=== PATIENT | male | born 1950 | race Caucasian/White ===

== ENCOUNTER 2020-06-14 10:11 | Outpatient (REF) | payer MEDICARE, SELFPAY ==
[2020-06-14 14:24] LABS: Cholesterol 213 mg/dL; HDL Cholesterol 54 mg/dL; LDL Cholesterol Calculated 136 mg/dl; Triglycerides 116 mg/dL
== END 2020-06-14 10:12 | disposition home or self-care (01) ==
LOC: HO.10HDL 10:11
PROVIDERS: PCP Internal Medicine; Visit Provider Internal Medicine
DX: E78.00 Pure hypercholesterolemia, unspecified (principal)
CPT/HCPCS: 80061

== ENCOUNTER 2020-11-04 11:22 | Outpatient (REF) | payer MEDICARE, SELFPAY ==
--- NOTE | ~2020-11-04 | CT_ITS ---
EXAMINATION: CT MAXILLOFACIAL WITHOUT CONTRAST CLINICAL INFORMATION: Other specified disorder of nose and sinuses. COMPARISON: None. TECHNIQUE: Multidetector helical imaging was performed in the axial plane with generation of coronal and sagittal reformatted images. This CT examination was performed using dose optimization techniques as appropriate, variously including the following: *Automated exposure control *Adjustment of mA and/or kV according to patient size (this includes techniques or standardized protocols for targeted exams where dose is matched to indication/reason for exam; i.e. extremities or head) *Use of iterative reconstruction technique DLP: 94 mGy-cm. FINDINGS: There is mild mucosal thickening dependently in the left frontal sinus and in the left anterior ethmoid air cells. Small retention cyst in the left sphenoid sinus. There is a moderate rightward deviation of the nasal septum with nasal septal spurring distorting the right inferior turbinate. The ostiomeatal complexes are clear. The lamina papyracea are intact. The ethmoid roofs are symmetric. The carotid canals are normally covered by bone. There is periodontal disease associated with the first right maxillary molar. The mastoid air cells and visualized middle ear cavities are well aerated. The orbits are normal. The TMJs are unremarkable. The imaged portions of the brain demonstrate no acute abnormality. CT/CT sinus wo con IMPRESSION: Mild left frontal ethmoid sinus mucosal thickening. Moderate rightward nasal septal deviation with nasal septal spurring distorting the right inferior turbinate.
== END 2020-11-04 11:23 | disposition home or self-care (01) ==
LOC: HO.CT 11:22
PROVIDERS: PCP Internal Medicine; Visit Provider Internal Medicine
DX: H93.11 Tinnitus, right ear (principal); J34.89 Other specified disorders of nose and nasal sinuses
CPT/HCPCS: 70486

== ENCOUNTER 2021-01-30 16:08 | Outpatient (REF) | payer MEDICARE, SELFPAY ==
[2021-01-30 17:19] LABS: MANUAL DIFF FLAG NO
[2021-01-30 17:22] LABS: Basophils Percent Auto 0.6 % (0-2); Eosinophils Absolute Auto 0.2 X10*3/uL (0.0-0.4); Eosinophils Percent Auto 2.8 % (0-4); Imm Gran Abs Auto 0.03 X10*3/uL (0.00-0.03); Imm Gran Pct Auto 0.4 % (0.0-0.4); Lymphocytes Absolute Auto 1.4 X10*3/uL (1.2-4.9); Lymphocytes Percent Auto 19.9 % (20-40); Mean Corpuscular HGB Conc 34.1 g/dl (31.0-36.0); Mean Corpuscular Hemoglobin 31.1 pg (27.0-33.0); Mean Corpuscular Volume 91.3 fL (80-98); Monocytes Absolute Auto 0.5 X10*3/uL (0.1-1.2); Monocytes Percent Auto 7.5 % (2-11); Neutrophils Absolute Auto 4.7 X10*3/uL (2.0-8.3); Neutrophils Percent Auto 68.8 % (45-73); Platelet Count 207 X10*3/uL (160-400); Red Blood Count 4.82 X10*6/uL (4.60-5.80); Red Cell Distribution Width 13.5 % (11.0-16.0); White Blood Count 6.9 X10*3/uL (4.8-10.8)
[2021-01-30 17:52] LABS: Anion Gap 11 (12-20); Blood Urea Nitrogen 18 mg/dL (9-16); Calcium 9.4 mg/dL (8.4-10.2); Carbon Dioxide 29 mmol/L (22-29); Chloride 104 mmol/L (96-108); Estimated Glomerular Filt Rate > 60; Glucose Random 98 mg/dL (60-115); Potassium 4.1 mmol/L (3.3-5.1); Sodium 140 mmol/L (135-145)
[2021-02-01 17:41] LABS: Lyme Abs Screen <0.90 index
== END 2021-01-30 16:09 | disposition home or self-care (01) ==
LOC: HO.LAB 16:08
PROVIDERS: PCP Internal Medicine; Visit Provider Internal Medicine
DX: T14.8XXA Other injury of unspecified body region, initial encounter (principal); W57.XXXA Bitten or stung by nonvenomous insect and other nonvenomous arthropods, initial encounter; R20.0 Anesthesia of skin
CPT/HCPCS: 36415; 80048; 82550; 85025; 86140; 86617; 86618

== ENCOUNTER 2021-02-15 09:18 | Outpatient (REF) | payer MEDICARE, SELFPAY ==
--- NOTE | ~2021-02-15 | CT_ITS ---
EXAMINATION: CT HEAD WITH/WITHOUT CONTRAST CLINICAL INFORMATION: Numbness left face. Rule out lesion. COMPARISON: None TECHNIQUE: Contiguous axial imaging was performed from the skull base to vertex before and after the administration of 85 mL of Omnipaque [address] examination was performed using dose optimization techniques as appropriate, variously including the following: *Automated exposure control *Adjustment of mA and/or kV according to patient size (this includes techniques or standardized protocols for targeted exams where dose is matched to indication/reason for exam; i.e. extremities or head) *Use of iterative reconstruction technique DLP: 1472 mGy-cm FINDINGS: There is no evidence of acute intracranial hemorrhage or territorial infarction. No abnormal mass effect or midline shift is seen. Payan to white matter differentiation is well preserved. No extra-axial fluid collections are identified. There is no abnormal enhancement. The lateral ventricles is symmetrical in size but enlarged. There is mild perirectal hypodensity without mass effect. The osseous structures and soft tissues are normal. There is mild mucoperiosteal thickening left anterior and middle ethmoid sinuses. Rest the paranasal sinuses and mastoid air cells are well-aerated . CT/CT head/brain wo/w con IMPRESSION: No acute intracranial process seen. Chronic left anterior and middle ethmoid sinus inflammatory changes.
[2021-02-15] MEDS: iohexoL 350 MG/ML 100 ML INFUS..BTL IV (09:57)
== END 2021-02-15 09:19 | disposition home or self-care (01) ==
LOC: HO.CT 09:18
PROVIDERS: PCP Internal Medicine; Visit Provider Internal Medicine
DX: R20.2 Paresthesia of skin (principal)
CPT/HCPCS: 70470; Q9967

== ENCOUNTER 2021-04-18 10:31 | Outpatient (REF) | payer MEDICARE, SELFPAY ==
[2021-04-18 13:44] LABS: MANUAL DIFF FLAG NO
[2021-04-18 13:55] LABS: Basophils Percent Auto 0.6 % (0-2); Eosinophils Absolute Auto 0.1 X10*3/uL (0.0-0.4); Eosinophils Percent Auto 2.8 % (0-4); Hematocrit 45.9 % (42-52); Hemoglobin 15.3 g/dl (14.0-18.0); Imm Gran Abs Auto 0.02 X10*3/uL (0.00-0.03); Imm Gran Pct Auto 0.4 % (0.0-0.4); Lymphocytes Absolute Auto 1.2 X10*3/uL (1.2-4.9); Lymphocytes Percent Auto 26.6 % (20-40); Mean Corpuscular HGB Conc 33.3 g/dl (31.0-36.0); Mean Corpuscular Hemoglobin 30.4 pg (27.0-33.0); Mean Corpuscular Volume 91.1 fL (80-98); Mean Platelet Volume 10.3 fL (9.4-12.4); Monocytes Absolute Auto 0.4 X10*3/uL (0.1-1.2); Monocytes Percent Auto 8.4 % (2-11); Neutrophils Absolute Auto 2.9 X10*3/uL (2.0-8.3); Neutrophils Percent Auto 61.2 % (45-73); Platelet Count 203 X10*3/uL (160-400); Red Blood Count 5.04 X10*6/uL (4.60-5.80); White Blood Count 4.7 X10*3/uL (4.8-10.8)
[2021-04-18 14:07] LABS: Alanine Aminotransferase 18 U/L (0-40); Albumin Level 4.2 g/dL (3.5-5.0); Alkaline Phosphatase 42 U/L (39-117); Anion Gap 12 (12-20); Aspartate Amino Transferase 19 U/L (5-37); Bilirubin Total 1.4 mg/dL (0.0-1.0); Blood Urea Nitrogen 15 mg/dL (9-16); Calcium 9.1 mg/dL (8.4-10.2); Carbon Dioxide 27 mmol/L (22-29); Chloride 100 mmol/L (96-108); Cholesterol 207 mg/dL; Estimated Glomerular Filt Rate > 60; Glucose Fasting 100 mg/dL (60-99); HDL Cholesterol 55 mg/dL; LDL Cholesterol Calculated 126 mg/dl; Potassium 4.4 mmol/L (3.3-5.1); Sodium 135 mmol/L (135-145); Total Protein 6.8 g/dL (6.5-8.0); Triglycerides 130 mg/dL
[2021-04-18 14:28] LABS: Prostate Specific Antigen Scr 1.71 ng/mL (<0.05-4.0)
[2021-04-20 16:11] LABS: Transglutaminase Ab IgG <1.0 U/mL; Transglutaminase IgA <1.0 U/mL
[2021-04-20 16:15] LABS: Gliadin Deamidated IgA Ab 1.6 U/mL; Gliadin Deamidated IgG Ab <1.0 U/mL
== END 2021-04-18 10:32 | disposition home or self-care (01) ==
LOC: HO.10HDL 10:31
PROVIDERS: Visit Provider Internal Medicine
DX: Z12.5 Encounter for screening for malignant neoplasm of prostate (principal); I10 Essential (primary) hypertension; E78.00 Pure hypercholesterolemia, unspecified; R19.7 Diarrhea, unspecified; Z86.010 Personal history of colon polyps
CPT/HCPCS: 36415; 80053; 80061; 83516; 84153; 85025

== ENCOUNTER 2021-04-25 13:47 | Outpatient (REF) | payer MEDICARE, SELFPAY ==
[2021-04-27 13:07] LABS: Transglutaminase Ab IgG <1.0 U/mL
[2021-04-27 13:11] LABS: Gliadin Deamidated IgA Ab 1.5 U/mL; Gliadin Deamidated IgG Ab <1.0 U/mL
== END 2021-04-25 13:48 | disposition home or self-care (01) ==
LOC: HO.LAB 13:47
PROVIDERS: PCP Internal Medicine; Visit Provider Internal Medicine
DX: R19.7 Diarrhea, unspecified (principal)
CPT/HCPCS: 36415; 83516

== ENCOUNTER → 2022-02-22 07:46 | Outpatient (BNVA) | payer MEDICARE, SELFPAY | PROVIDERS: PCP Internal Medicine; Referring Provider Internal Medicine; Visit Provider Nurse Practitioner Family | DX: Z01.818 Encounter for other preprocedural examination (principal); D36.9 Benign neoplasm, unspecified site | CPT/HCPCS: 99202 ==

== ENCOUNTER 2022-04-09 10:16 | Outpatient (REF) | payer MEDICARE, SELFPAY ==
[2022-04-09 13:46] LABS: MANUAL DIFF FLAG NO
[2022-04-09 13:51] LABS: Basophils Percent Auto 0.6 % (0-2); Eosinophils Absolute Auto 0.2 X10*3/uL (0.0-0.4); Eosinophils Percent Auto 3.5 % (0-4); Hemoglobin 15.6 g/dl (14.0-18.0); Imm Gran Abs Auto 0.03 X10*3/uL (0.00-0.03); Imm Gran Pct Auto 0.6 % (0.0-0.4); Lymphocytes Absolute Auto 1.4 X10*3/uL (1.2-4.9); Lymphocytes Percent Auto 28.7 % (20-40); Mean Corpuscular HGB Conc 33.9 g/dl (31.0-36.0); Mean Corpuscular Volume 91.5 fL (80.0-98.0); Mean Platelet Volume 10.2 fL (9.4-12.4); Monocytes Absolute Auto 0.5 X10*3/uL (0.1-1.2); Monocytes Percent Auto 9.7 % (2-11); Neutrophils Absolute Auto 2.8 x10*3/uL (2.0-8.3); Neutrophils Percent Auto 56.9 % (45-73); Platelet Count 187 X10*3/uL (160-400); Red Blood Count 5.03 X10*6/uL (4.60-5.80); Red Cell Distribution Width 13.1 % (11.0-16.0); White Blood Count 4.9 X10*3/uL (4.8-10.8)
[2022-04-09 14:06] LABS: Alanine Aminotransferase 17 U/L (0-40); Albumin Level 4.3 g/dL (3.5-5.0); Alkaline Phosphatase 42 U/L (39-117); Anion Gap 17 (12-20); Aspartate Amino Transferase 20 U/L (5-37); Bilirubin Total 1.1 mg/dL (0.0-1.0); Blood Urea Nitrogen 15 mg/dL (9-16); Calcium 9.2 mg/dL (8.4-10.2); Carbon Dioxide 27 mmol/L (22-29); Chloride 100 mmol/L (96-108); Cholesterol 222 mg/dL; Estimated Glomerular Filt Rate > 60; Glucose Fasting 101 mg/dL (60-99); HDL Cholesterol 57 mg/dL; LDL Cholesterol Calculated 144 mg/dl; Potassium 4.8 mmol/L (3.3-5.1); Sodium 139 mmol/L (135-145); Total Protein 6.9 g/dL (6.5-8.0); Triglycerides 106 mg/dL
[2022-04-09 14:29] LABS: Prostate Specific Antigen Scr 1.62 ng/mL (<0.05-4.0)
== END 2022-04-09 10:17 | disposition home or self-care (01) ==
LOC: HO.10HDL 10:16
PROVIDERS: Visit Provider Internal Medicine
DX: Z12.5 Encounter for screening for malignant neoplasm of prostate (principal); I10 Essential (primary) hypertension; E78.00 Pure hypercholesterolemia, unspecified; R35.1 Nocturia
CPT/HCPCS: 36415; 80053; 80061; 84153; 85025

== ENCOUNTER → 2022-04-18 13:51 | Outpatient (REF) | payer MEDICARE, SELFPAY ==
--- NOTE | 2022-04-18 13:54 | CA_ITS ---
Transthoracic Echocardiogram Patient (Last, First, Middle): Bobby Mccartney, Gender: Male Date of : 1950 Age: 71 Procedure Date: 04/18/2022 Procedure Type: Transthoracic Echocardiogram Location: OP Height: 172.72 cm Weight: 68.04 kg BSA: 1.81 m2 Heart Rate: 62 bpm BP: 150 / 85 mmHg Adult Caregiver: KUNAL Referring MD: Alejo Petersen MD Restrooms Or Lounges Maid: Obed Carmen MD Symptoms: HEART MURMUR Study Quality: Adequate ECG Rhythm: Sinus Conclusions: - 1. Normal LV systolic function with LVEF of 60 65% 2. Mild fibrocalcific aortic valve changes noted with normal cardiac valvular Doppler 3. Normal RV systolic pressure 4. No gross pericardial effusion Findings Left Ventricle Normal left ventricular size, thickness, and systolic function. The visually estimated ejection fraction is between 60-65%. Spectral Doppler is indicative of a normal filling pattern. Right Ventricle Normal right ventricular cavity size and systolic function. Atria The left atrium is normal in size. Interatrial shunt cannot be excluded. The right atrium is normal in size. Aortic Valve The aortic valve was not well visualized. There is mild calcification of the aortic valve. There is no aortic valve stenosis. There is no aortic valve regurgitation. Mitral Valve Normal mitral valve structure and function. There is trace mitral valve regurgitation. There is no mitral valve stenosis. Pulmonic Valve The pulmonic valve was not well visualized. Tricuspid Valve Likely normal tricuspid valve structure and function. There is trace tricuspid valve regurgitation. The right ventricular systolic pressure is normal. The right ventricular systolic pressure is 11 mmHg. Normal right atrial pressure. Great Vessels All visible segments of the aorta are normal in size. The pulmonary artery was not well visualized. Venous The inferior vena cava is normal in size and collapses greater than 50% with inspiration. Pericardium/Pleural There is no evidence of pericardial effusion. Prior Study Comparison No prior study available for comparison. Measurements 2D Linear Measurements IVSd: 0.96 0.6-0.9/0.6-1.0 cm LVIDd: 4.65 3.9-5.3/4.2-5.9 cm LVIDd Index: 2.57 2.4-3.2/2.2-3.1 cm/m2 LVIDs: 2.27 2.0-3.6 cm LVPWd: 0.81 0.7-1.1 cm LA Diam: 3.10 2.7-3.8/3.0-4.0 cm LAIDs Index: 1.71 1.5-2.3 cm/m2 LV Mass: 170.88 67-162/88-224 g LV Mass Index: 94.41 43-95/49-115 g/m2 LVOT Diam: 2.00 3.0+(-)1.3 cm 2D Systolic Function EF 4C: 60.80 >55% EF 2C: 67.00 >55% EF BiP: 61.70 >55% Mitral Valve MV Pk E: 0.85 MV PK A: 0.62 MV Decel Time: 173.00 E/A: 1.40 E'Lateral: 11.30 E'Medial: 8.05 E/E' Med: 10.50 E/E' Lat: 7.50 PHT: 51.00 MVA PHT: 4.31 Decel [place]: 4.92 Aortic Valve AoV Pk Ilya: 1.29 AoV Mn Ilya: 0.95 AoV VTI: 0.30 AoV Pk Grad: 7.00 Aov Mn Grad: 4.00 REYNALDO Cont.VTI: 2.41 LVOT LVOT Pk Ilya: 1.11 LVOT Mn Ilya: 0.72 LVOT VTI: 0.23 LVOT Pk Grad: 5.00 LVOT Mn Grad: 2.00 LVOT Diam: 2.00 LVOT Area: 3.14 Diastolic Function MV Pk E: 0.85 MV Pk A: 0.62 E/A: 1.40 E'Medial: 8.05 E/E' Med: 10.50 E' Laterial: 11.30 E/E' Lat: 7.50 Right Ventricle TAPSE (mm): 28.70 TVS' Ilya: 15.20 Tricuspid Valve TR Pk Ilya: 1.37 TR Pk Grad: 8.00 RA Press: 3.00 RVSP: 11.00 Great Vessels Aorta Sinus of Valsalva: 3.40 2.0-3.5 cm Ao Asc: 3.10 2.1-3.4 cm Pulmonary Valve PV Pk Ilya: 1.11 Peak PV Grad: 5.00 Updated in Other Vendor System with Status of Final Obed Carmen MD electronically signed on 04/19/2022 11:26:01 AM with status of Final
== END ==
LOC: HO.CARD 13:51
PROVIDERS: PCP Internal Medicine; Visit Provider Internal Medicine
DX: R01.1 Cardiac murmur, unspecified (principal)
CPT/HCPCS: 93306

== ENCOUNTER 2022-07-04 07:21 | Day surgery (SDC) | payer MEDICARE, SELFPAY ==
[2022-07-02 09:10] VITALS: BMI 22.8
--- NOTE | 2022-07-03 08:59 | HO.ANESPROP2 ---
HPI - Anesthesia Eval Consult details Narrative: 71yo M for Colonoscopy PMFSH Active Problems Active Problems: All Active Problems (Updated 02/22/22 @ 08:28 by NIKKI Ledesma) Tubular adenoma (Acute) Past Medical History Medical History (Updated 02/22/22 @ 08:28 by NIKKI Ledesma) HTN (hypertension) Tubular adenoma Family History Family History Mother Lung cancer Colon cancer Father Heart attack Surgical History Surgical History (Updated 07/02/22 @ 09:09 by Doreen Self RN) H/O colonoscopy Hx of left inguinal hernia repair Social History Social History (Updated 02/22/22 @ 08:12 by Jovani Garland) Household Members: Significant Other Alcohol intake: current Patient Tobacco Use Status: Never used Tobacco Meds Allergies Allergy/AdvReac Type Severity Reaction Status Date / Time No Known Allergies Allergy Verified 02/22/22 08:10 [No Known Allergies*] Home Medications Medication Instructions Recorded Confirmed Last Taken Type hydrochlorothiazide 25 mg tablet 12.5 mg PO QAM 02/22/22 Unknown History lisinopril 10 mg tablet 10 mg PO DAILY 02/22/22 Unknown History Exam Exam Date and Time: July 03, 2022 0859 Height,Weight and Vital Signs: Height 5 ft 8 in Weight 68.039 kg Pertinent Lab Results Pertinent Lab Results: Laboratory Tests 04/09/22 04/09/22 10:20 10:20 WBC 4.9 Hgb 15.6 Hct 46.0 Plt Count 187 Sodium 139 Potassium 4.8 Chloride 100 Carbon Dioxide 27 BUN 15 Creatinine 0.93 Narrative Narrative: ECHO 03/2022 Conclusions: - 1. Normal LV systolic function with LVEF of 60 65% ? 2. Mild fibrocalcific aortic valve changes noted with normal ? ? cardiac valvular Doppler ? 3. Normal RV systolic pressure ? 4. No gross pericardial effusion ?? Assessment and Plan Assessment Anesthesia Assessment: Chart Reviewed
--- NOTE | 2022-07-04 06:53 | P.HPSUR_ITS ---
Pre-Procedural Eval Section A Date of Service: 07/04/22 Section B Chief Complaint: screening Relevant Family History (Specify if Yes): Yes Relevant Social History: None Present Medications: see Short Stay Collaborative assessment Medical History: Significant History ( HTN (hypertension) Tubular adenoma) History of Previous Operations: Relevant previous surgery/procedure and date(s) (inguinal hernia repair) Allergies: Allergies Allergy/AdvReac Type Severity Reaction Status Date / Time No Known Allergies Allergy Verified 02/22/22 08:10 [No Known Allergies*] Review of Systems Sugical H&P ROS: Negative: Constitution, Cardiovascular, Respiratory, Jeanmarie rological, Psychiatric, Hem-Onc, Allergic/Immunologic, Gastrointestinal, Genitourinary, Musculoskeletal, Integumentary, Endocrine and Eyes/Ears/Nose/Throat Exam Surgical H&P Exam: Normal: HEENT, Normal: Heart, Normal: Lungs, Normal: Extremities, Normal: Abdomen and Normal: Neurological and Significant Findings: Skin (roscea) Plan Diagnosis/Plan: Unchanged I have reviewed the history and physical and performed a pertinent physical examination on my patient. No changes have occurred unless specified. Time Spent With Patient Time: Total time managing care of this patient today ____ minutes.
[2022-07-04 07:32] VITALS: BMI 22.8
[2022-07-04 07:34] VITALS: BP 140/74; PULSE 80; RESP 18; TEMP 37; O2SAT 99
[2022-07-04] MEDS: Lactated Ringers 1,000 ML 100 ML IVCONT (07:52)
--- NOTE | 2022-07-04 07:57 | HO.ANESPROP2 ---
[facility] Active Problems Active Problems: All Active Problems (Updated 02/22/22 @ 08:28 by NIKKI Ledesma) Tubular adenoma (Acute) Past Medical History Medical History (Updated 02/22/22 @ 08:28 by NIKKI Ledesma) HTN (hypertension) Tubular adenoma Family History Family History Mother Lung cancer Colon cancer Father Heart attack Family history of problems with anesthesia: No Surgical History Surgical History (Updated 07/02/22 @ 09:09 by Doreen Self RN) H/O colonoscopy Hx of left inguinal hernia repair History of Problems with Anesthesia: No Social History Social History (Updated 02/22/22 @ 08:12 by Jovani Garland) Household Members: Significant Other Alcohol intake: current Patient Tobacco Use Status: Never used Tobacco Use of substances other than those prescribed or required for medical reasons: No Have you been hit, kicked, punched, or otherwise hurt by someone within the past year? If so, by whom?: No Are you DNR?: No Advance Directives: No Advance Directives Information Provided: Yes Meds Allergies Allergy/AdvReac Type Severity Reaction Status Date / Time No Known Allergies Allergy Verified 02/22/22 08:10 [No Known Allergies*] Active Medications: Current Medications Lactated Ringer's (Lr) 1,000 mls @ 100 mls/hr IVCONT .Q10H DANIELLE Last Admin: 07/04/22 07:52 Dose: 100 mls/hr Home Medications Medication Instructions Recorded Confirmed Last Taken Type hydrochlorothiazide 25 mg tablet 12.5 mg PO QAM 02/22/22 Unknown History lisinopril 10 mg tablet 10 mg PO DAILY 02/22/22 Unknown History Exam Exam Date and Time: July 04, 2022 0757 Height,Weight and Vital Signs: Height 5 ft 8 in Weight 68.039 kg Last Vital Signs Temp 98.6 F 07/04/22 07:34 Pulse 80 07/04/22 07:34 Resp 18 07/04/22 07:34 BP 140/74 H 07/04/22 07:34 Pulse Ox 99 07/04/22 07:34 O2 Del Method 07/04/22 07:34 Airway Mallampati Class: I TM Dist: >3cm Neck ROM: Full Assessment and Plan Assessment Anesthesia Assessment: Anesthesia Plan Discussed and Chart Reviewed Final Anesthetic Review Family History of Problems with Anesthesia: No History of Problems with Anesthesia: No NPO: Yes ASA Class: II Final Preanesthetic Review: No Changes in Pt Med Stat, Meds/Allgs Chart Reviewed, Consent Obtained/Reviewed and Anes Risks/Benef Reviewed Patient Risk: Low Procedure Risk: Low Anesthetic Plan Anesthetic Plan: MAC: Disposition: Standard PACU
--- NOTE | 2022-07-04 08:24 | W.PM.OPN ---
Operative Note Operative Note Date of Service: 07/04/22 Narrative: Operative Information Procedure Description: Colonoscopy Indication: screening Anesthesia: MAC COLONOSCOPY Instrument: Olympus variable stiffness pediatric scope 190L Colonoscopy Monitoring: Vital signs and clinical assessment, continuous EKG monitoring, Pulse oximetry, Carbon Dioxide monitoring and blood pressure monitoring were done throughout the procedure. Colon withdrawal time was 12 minutes. Procedure: The patient was placed in the left lateral decubitis position and pre-procedure medications were administered. After a digital rectal examination of the ano-rectum, the video colonoscope was inserted into the rectum and advanced through the colon to the cecum/TI. The colonoscope was slowly withdrawn in a retrograde panoramic fashion and the colon mucosa was carefully examined including a retroflexed view of the rectum. Findings and interventions are described below. Procedure Difficulty: easy Findings: Terminal Ileum-normal Cecum:normal Ascending Colon: x 1 sessile polyp 10 mm removed with cold snare Transverse Colon -normal Descending Colon: x 2 sessile polyps 8-10 mm removed with cold snare Sigmoid Colon: 6-8 mm sessile polyp removed with cold forceps Rectum: Retroflexion with small internal hemorrhoids, grade I Anorectum - normal Colon preparation: [place] Bowel Preparation Scale Right colon; 2 Transverse colon: 3 Left colon; 3 (0 = Unprepared colon segment with mucosa not seen due to solid stool that cannot be cleared. 1 = Portion of mucosa of the colon segment seen, but other areas of the colon segment not well seen due to staining, residual stool and/or opaque liquid. 2 = Minor amount of residual staining, small fragments of stool and/or opaque liquid, but mucosa of colon segment seen well. 3 = Entire mucosa of colon segment seen well with no residual staining, small fragments of stool or opaque liquid) Impression and Post Procedure Diagnosis: polyps internal hemorrhoids Plan: High fiber diet leaflet Avoid straining at stool, epsom salts and sitz bath, anusol supps or cream Repeat Colonoscopy in 3-4 years due to adenomatous polyps by kudo pit pattern or earlier if clinically indicated Above findings were reviewed with the patient and relevant handouts were provided if indicated.
[2022-07-04 08:46] VITALS: BP 121/62; PULSE 59; RESP 16; TEMP 36.8; O2SAT 97
[2022-07-04 09:02] VITALS: BP 111/69; PULSE 55; RESP 16; TEMP 36.9; O2SAT 98
== END 2022-07-04 09:40 | disposition home or self-care (01) ==
PROVIDERS: PCP Internal Medicine; Visit Provider Internal Medicine Gastroenterology
PROC: 0DJD8ZZ Inspection of Lower Intestinal Tract, Via Natural or Artificial Opening Endoscopic (ICD-10-PCS; CPT 45378; principal; 2022-07-04 08:30)
DX: Z12.11 Encounter for screening for malignant neoplasm of colon (principal); Z86.010 Personal history of colon polyps; D12.2 Benign neoplasm of ascending colon; D12.4 Benign neoplasm of descending colon; D12.5 Benign neoplasm of sigmoid colon; K64.0 First degree hemorrhoids; I10 Essential (primary) hypertension; Z79.899 Other long term (current) drug therapy
CPT/HCPCS: 45385; 45380; 88305

== ENCOUNTER 2023-05-28 09:06 | Outpatient (REF) | payer MEDICARE, SELFPAY ==
[2023-05-28 09:38] LABS: MANUAL DIFF FLAG NO
[2023-05-28 10:16] LABS: Basophils Percent Auto 0.8 % (0-2); Eosinophils Absolute Auto 0.2 X10*3/uL (0.0-0.4); Eosinophils Percent Auto 3.7 % (0-4); Hematocrit 48.3 % (42.0-52.0); Hemoglobin 16.3 g/dl (14.0-18.0); Imm Gran Abs Auto 0.02 X10*3/uL (0.00-0.03); Imm Gran Pct Auto 0.4 % (0.0-0.4); Lymphocytes Absolute Auto 1.3 X10*3/uL (1.2-4.9); Lymphocytes Percent Auto 26.9 % (20-40); Mean Corpuscular HGB Conc 33.7 g/dl (31.0-36.0); Mean Corpuscular Hemoglobin 30.6 pg (27.0-33.0); Mean Corpuscular Volume 90.8 fL (80.0-98.0); Mean Platelet Volume 9.8 fL (9.4-12.4); Monocytes Absolute Auto 0.4 X10*3/uL (0.1-1.2); Monocytes Percent Auto 8.4 % (2-11); Neutrophils Absolute Auto 2.9 x10*3/uL (2.0-8.3); Neutrophils Percent Auto 59.8 % (45-73); Platelet Count 187 X10*3/uL (160-400); Red Blood Count 5.32 X10*6/uL (4.60-5.80); White Blood Count 4.9 X10*3/uL (4.8-10.8)
[2023-05-28 11:02] LABS: Alanine Aminotransferase 20 U/L (0-40); Albumin Level 4.4 g/dL (3.5-5.0); Alkaline Phosphatase 38 U/L (39-117); Anion Gap 11 (12-20); Aspartate Amino Transferase 19 U/L (5-37); Bilirubin Total 1.1 mg/dL (0.0-1.0); Blood Urea Nitrogen 14 mg/dL (9-16); Calcium 9.6 mg/dL (8.4-10.2); Carbon Dioxide 28 mmol/L (22-29); Chloride 101 mmol/L (96-108); Cholesterol 227 mg/dL (<200); Estimated Glomerular Filt Rate > 60; Glucose Fasting 104 mg/dL (60-99); HDL Cholesterol 59 mg/dL (>40); LDL Cholesterol Calculated 138 mg/dL (<100); Sodium 136 mmol/L (135-145); Total Protein 7.4 g/dL (6.5-8.0); Triglycerides 154 mg/dL (<150)
[2023-05-28 11:18] LABS: Prostate Specific Antigen 2.69 ng/mL (<0.05-4.0)
== END 2023-05-28 09:07 | disposition home or self-care (01) ==
LOC: HO.LAB 09:06
PROVIDERS: PCP Internal Medicine; Visit Provider Internal Medicine
DX: I10 Essential (primary) hypertension (principal); E78.00 Pure hypercholesterolemia, unspecified; Z12.5 Encounter for screening for malignant neoplasm of prostate
CPT/HCPCS: 36415; 80053; 80061; 84153; 85025

== ENCOUNTER → 2023-06-26 14:06 | Outpatient (BNVA) | payer MEDICARE, SELFPAY | PROVIDERS: PCP Internal Medicine; Visit Provider Orthopaedic Surgery ==

== ENCOUNTER 2023-09-30 15:51 | Outpatient (REF) | payer MEDICARE, SELFPAY ==
--- NOTE | ~2023-09-30 | XR_ITS ---
EXAMINATION: XR SINUSES CLINICAL INFORMATION: Neck pain severe headaches sinus pressure COMPARISON: None available. TECHNIQUE: 3 views of the sinuses were obtained. FINDINGS: Paranasal sinuses appear clear without air-fluid levels. No fractures are identified. No radiodense foreign bodies. XR/XR sinus <3V IMPRESSION: Unremarkable examination.
--- NOTE | ~2023-09-30 | XR_ITS ---
EXAMINATION: XR cervical spine 2V CLINICAL INFORMATION: Pain COMPARISON: None TECHNIQUE: 3 views of the cervical spine were obtained. FINDINGS: The cervical spine is visualized to the level of C7 on the lateral view. Vertebral body alignment is maintained. Vertebral body heights are maintained. Lateral masses of C1 are well aligned on C2. Visualized portion of the dens is intact. Mild degenerative disc disease at C6/C7, manifested by disc space narrowing and osteophytosis.. No prevertebral soft tissue swelling. XR/XR cervical spine 2V IMPRESSION: Mild degenerative disc disease at C6/C7.
== END 2023-09-30 15:52 | disposition home or self-care (01) ==
LOC: HO.LAB 15:51
PROVIDERS: PCP Internal Medicine; Visit Provider Internal Medicine
DX: R09.81 Nasal congestion (principal); M54.2 Cervicalgia
CPT/HCPCS: 70210; 72040

== ENCOUNTER 2023-11-04 10:25 | Outpatient (REF) | payer MEDICARE, SELFPAY ==
--- NOTE | ~2023-11-04 | XR_ITS ---
EXAMINATION: XR CERVICAL SPINE CLINICAL INFORMATION: Patient states no trauma, pain in neck. COMPARISON: 10/20/2023. TECHNIQUE: 7 views of the cervical spine. FINDINGS: The bones are diffusely demineralized. Degenerative changes between the anterior arch of C1 and the odontoid. Multilevel cervical spondylosis with moderate loss of disc space height at C6-C7 and mild loss of disc space height at C5-C6. C7 obscured by overlying soft tissues. Multilevel facet arthritis in the lower cervical spine. XR/XR cervical spine 4V IMPRESSION: Multilevel cervical spondylosis most notable at C6-C7.
== END 2023-11-04 10:26 | disposition home or self-care (01) ==
LOC: HO.XRAY 10:25
PROVIDERS: PCP Internal Medicine; Visit Provider Internal Medicine
DX: M54.2 Cervicalgia (principal)
CPT/HCPCS: 72050

== ENCOUNTER 2023-12-03 09:49 | Outpatient (AMB) | payer MEDICARE, SELFPAY ==
--- NOTE | 2023-12-03 09:50 | MHC.OFFVIS ---
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 States his right is worse. Patient reports this his ring and middle finger started to curl inwards towards his palm about 1.5 years ago. Pt states this causes him no pain or discomfort.Patient would like to discuss treatment options. 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 He complains of his middle & ring fingers chauncey in towards his palm for ~18 months now. His primary complaint is of a right ring finger contracture. He denies any injury, numbness, or tingling. He denies any pain. He wants to discuss treatment options. He says he is active playing golf, and has for ~60 years, but he has taken a step back from playing at this time. He is retired. REPLACED BY [facility] Medical History HTN (hypertension) Tubular adenoma Surgical History H/O colonoscopy Hx of left inguinal hernia repair Family History Mother Lung cancer Colon cancer Father Heart attack Social History Household Members: Significant Other Alcohol intake: current Patient Tobacco Use Status: Never used Tobacco Review of Systems Const All systems reviewed & are unremarkable except as noted in HPI and below Physical Exam Const General: cooperative, healthy appearing and no acute distress Orientation/consciousness: patient oriented x3 HEENT Head: Yes normocephalic and Yes atraumatic Eyes EOM: EOMs intact bilaterally Resp Effort & Inspection: normal respiratory effort and able to speak in complete sentences Cardio Jugular venous distension: no JVD Skin General skin exam: turgor normal Rashes: no rashes Neuro General: patient oriented x3 Extrem Other: Evaluation of Bilateral Upper Extremity: The patient is alert, oriented, and in no acute distress Neuro: Median, Ulnar, Radial nerves motor and sensory intact and sensation is normal to the tips of all digits Vascular: Cap refill brisk ROM: He can bring all his fingers closed to a fist He can extend his thumb, index, middle and small fingers bilaterally His ring fingers are contracted in towards his palm There is a central Dupuytrens cord extending to the middle phalanx level of the right ring finger Right ring: MCP 25/PIP 0 There is a central cord extending to the ring finger Left ring: MCP 15/ PIP 0 cord starting to develop in line with middle finger, with no middle finger contracture Skin: No lacerations or abrasions. General: No Ecchymosis. No Erythema or evidence of infection. Psych Appearance: grossly normal Affect: normal affect Attitude: cooperative Assessment & Plan Assessment & Plan (1) Dupuytren's contracture of right hand: Code(s): M72.0 - Palmar fascial fibromatosis [Dupuytren] Category: Medical (2) Dupuytren's contracture of left hand: Code(s): M72.0 - Palmar fascial fibromatosis [Dupuytren] Category: Medical Plan Assessment & Plan: 1. Right ring finger Dupuytrens contracture MCP 25/PIP 0 2. Left ring finger Dupuytrens contracture MCP 15/PIP 0 I educated him about this condition I discussed operative and non-operative treatment options. I think he would likely benefit from surgery within the next year I directed him to the [email or web address] website for more information He declined any treatment today and says he is not particularly bothered at this time. He will keep an eye on his hand and if his contracture worsens or he finds himself more limited in daily activities he can follow up to discuss surgery. Scribed for Sameera Gill MD by Maxim Boyd er medical technician, on 12/03/23 at 10:20 AM, EST. Coding Level of Care Code New Pt Level 4 (42418) Diagnoses Dupuytren's contracture of right hand M72.0 Dupuytren's contracture of left hand M72.0
== END 2023-12-03 10:38 | disposition home or self-care (01) ==
PROVIDERS: PCP Internal Medicine; Visit Provider Orthopaedic Surgery
DX: M72.0 Palmar fascial fibromatosis [Dupuytren] (principal)
CPT/HCPCS: 99214

== ENCOUNTER → 2023-12-03 09:49 | Outpatient (BNVA) | payer MEDICARE, SELFPAY | PROVIDERS: PCP Internal Medicine; Visit Provider Orthopaedic Surgery | DX: M72.0 Palmar fascial fibromatosis [Dupuytren] (principal) | CPT/HCPCS: 99212 ==

== ENCOUNTER 2024-06-30 12:34 | Outpatient (REF) | payer MEDICARE, SELFPAY ==
--- NOTE | ~2024-06-30 | XR_ITS ---
CLINICAL HISTORY: BACK PAIN 3 views lumbar spine Comparison: None Findings: Normal alignment. No acute fractures or dislocation. No significant degenerative change. There is aortic calcification. IMPRESSION: No acute findings. This document has been electronically signed by: Gordon Miguel MD on 07/02/2024 18:20:48
[2024-06-30 13:01] LABS: MANUAL DIFF FLAG NO
[2024-06-30 13:52] LABS: Basophils Percent Auto 0.7 % (0-2); Eosinophils Absolute Auto 0.1 X10*3/uL (0.0-0.4); Eosinophils Percent Auto 1.8 % (0-4); Hematocrit 48.4 % (42.0-52.0); Hemoglobin 16.4 g/dl (14.0-18.0); Imm Gran Abs Auto 0.05 X10*3/uL (0.00-0.03); Imm Gran Pct Auto 0.8 % (0.0-0.4); Lymphocytes Absolute Auto 1.2 X10*3/uL (1.2-4.9); Lymphocytes Percent Auto 20.3 % (20-40); Mean Corpuscular HGB Conc 33.9 g/dl (31.0-36.0); Mean Corpuscular Hemoglobin 30.8 pg (27.0-33.0); Monocytes Absolute Auto 0.5 X10*3/uL (0.1-1.2); Monocytes Percent Auto 8.3 % (2-11); Neutrophils Absolute Auto 4.1 x10*3/uL (2.0-8.3); Neutrophils Percent Auto 68.1 % (45-73); Platelet Count 186 X10*3/uL (160-400); Red Blood Count 5.32 X10*6/uL (4.60-5.80); Red Cell Distribution Width 13.2 % (11.0-16.0)
[2024-06-30 14:24] LABS: Alanine Aminotransferase 32 U/L (0-40); Albumin Level 4.4 g/dL (3.5-5.0); Alkaline Phosphatase 35 U/L (39-117); Anion Gap 12 (12-20); Aspartate Amino Transferase 38 U/L (5-37); Bilirubin Total 1.1 mg/dL (0.0-1.0); Blood Urea Nitrogen 14 mg/dL (9-16); Calcium 9.7 mg/dL (8.4-10.2); Carbon Dioxide 27 mmol/L (22-29); Chloride 104 mmol/L (96-108); Cholesterol 230 mg/dL (<200); Estimated Glomerular Filt Rate > 60; Glucose Fasting 105 mg/dL (60-99); HDL Cholesterol 50 mg/dL (>40); LDL Cholesterol Calculated 150 mg/dL (<100); Potassium 4.7 mmol/L (3.3-5.1); Sodium 138 mmol/L (135-145); Total Protein 7.4 g/dL (6.5-8.0); Triglycerides 150 mg/dL (<150)
[2024-06-30 14:54] LABS: Prostate Specific Antigen Scr 2.54 ng/mL (<0.05-4.0); Vitamin B12 267 pg/mL (200-900)
== END 2024-06-30 12:35 | disposition home or self-care (01) ==
LOC: HO.LAB 12:34
PROVIDERS: PCP Internal Medicine; Visit Provider Internal Medicine
DX: I10 Essential (primary) hypertension (principal); M54.9 Dorsalgia, unspecified; Z83.438 Family history of other disorder of lipoprotein metabolism and other lipidemia; Z12.5 Encounter for screening for malignant neoplasm of prostate
CPT/HCPCS: 36415; 72100; 80053; 80061; 82607; 84153; 85025

== ENCOUNTER → 2024-06-30 13:02 | Outpatient (BNV) | payer MEDICARE, SELFPAY | PROVIDERS: PCP Internal Medicine; Visit Provider Specialist | DX: M54.9 Dorsalgia, unspecified (principal) | CPT/HCPCS: 72100 ==

== ENCOUNTER 2025-04-15 11:20 | Outpatient (AMB) | payer MEDICARE, SELFPAY ==
--- NOTE | 2025-04-15 10:49 | MHC.PC.OV ---
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 Accompanied by: Self / Same As Patient Allergies No Known Allergies (No Known Allergies*) Allergy (Verified 04/15/25 10:49) Medication List - Last Reconciled 04/15/25 by Kalin Pizano MD atorvastatin (Lipitor) 40 mg PO BEDTIME hydrochlorothiazide 12.5 mg PO QAM lisinopril 10 mg PO DAILY [tumeric Take one capsule every day] Tobacco use date assessed: 04/15/25 Fall risk assessment: No Falls in past year Last assessed Fall Risk: 04/15/25 Dental Screening Dental Screen Date: 04/15/25 Did you have a dental visit in the last 12 months?: Yes Did you have a dental problem in the last 6 months where you did not have access to dental care?: No Was dental information given to patient?: Patient has dentist HPI HPI Comments History of Present Illness Details The patient is a 74-year-old male presenting with high blood pressure and cholesterol management, along with a burning sensation in the lower extremities. The hypertension has been monitored with two medications: hydrochlorothiazide 12.5 mg and lisinopril 10 mg. Home monitoring is not routinely done. There is a noted family history of cardiovascular disease. The hyperlipidemia has been a concern due to elevated LDL with past lab works; current lipid management is being revisited due to high levels. There is a focus on modifying this risk factor due to significant family history of cardiovascular disease. The patient is currently not on cholesterol medication. The patient also reports a recurring burning sensation in the ankles and feet, exacerbated by activities such as standing for long periods or biking, with no associated swelling. The burning surfaces alongside sun exposure, suggesting possible sun sensitivity which the patient links with similar conditions in his mother. Moisturizing creams have been ineffective. Lastly, the patient maintains a routine of colonoscopies due to a history of polyps and is aware of the change in frequency to every three years. Medical History: - Essential Hypertension controlled with medications - Hyperlipidemia - Arthritis in hands and hip - History of polyps detected during colonoscopies Surgical History: - Appendectomy at age [age] - Hernia repair approximately seven years ago Medications: - Hydrochlorothiazide 12.5 mg for Essential Hypertension - Lisinopril 10 mg for Essential Hypertension Family History: - Mother had a history of lung and colon cancer, abdominal aortic aneurysm - Father due to cardiovascular disease - No family history of pancreatic or other cancers Diagnostic Results: - Colonoscopy results indicating polyps and scheduled frequency - LDL cholesterol level at 150 mg/dL noted to be elevated Social History: - Retired for five years, 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 - Consumes one alcoholic beverage (IPA) and a shot of tequila daily - Non-smoker, denies illicit drug use - Engages in regular exercise including walking, bicycle riding, and gym visits three times a week [facility] Medical History (Updated 04/15/25 @ 12:03 by Kalin Pizano MD) Arthritis Neuropathy Hyperlipidemia HTN (hypertension) Tubular adenoma Surgical History H/O colonoscopy Hx of left inguinal hernia repair Family History Mother Lung cancer Colon cancer Father Heart attack Social History Household Members: Significant Other Housing: Condominium Alcohol intake: current Patient Tobacco Use Status: Never used Tobacco Tobacco use type: Cigarette e-Cigarette/Vaping Use: Never Used service: No Current occupational status: retired Questionnaire PHQ-9 Over the last 2 weeks, how often have you been bothered by any of the following problems? 1. Little interest or pleasure in doing things: not at all 2. Feeling down, depressed, or hopeless: not at all 3. Trouble falling or staying asleep, or sleeping too much: not at all 4. Feeling tired or having little energy: not at all 5. Poor appetite or overeating: not at all 6. Feeling bad about yourself - or that you are a failure or have let yourself or your family down: not at all 7. Trouble concentrating on things, such as reading the newspaper or watching television: not at all 8. Moving or speaking so slowly that other people could have noticed. Or the opposite - being so fidgety or restless that you have been moving around a lot more than usual: not at all 9. Thoughts that you would be better off or of hurting yourself in some way: not at all Total score: 0 Depression Screening Interpretation: Negative Depression Screening Done: Yes 24227 - PHQ-9 Billing: Yes Source: Developed by Drs. Femi Jonas, Pooja Meehan, Sam Hill and colleagues, with an educational fabiana from [employer]. Thrive Questionnaire Date Thrive assessed: 04/15/25 I am a: Patient What is your living situation today?: I have a steady place to live Within the past 12 months, did the food you bought not last and you didn't have the money to get more?: Never true Within the past 12 months, did you worry whether your food would run out before you got money to buy more?: Never true Do you have trouble paying for medicines?: No Do you have trouble getting transportation to medical appointments?: No Do you have trouble paying your heating and electricity bill?: No Do you have trouble taking care of your child, family member or friend?: No Do you have trouble with day-to-day activities such as bathing, preparing meals, shopping, managing finances, etc.?: No Are you currently unemployed and looking for a job?: No Are you interested in more education?: No THRIVE Score: 0 AUDIT C Alcohol Use Questionnaire (AUDIT-C) 1. How often do you have a drink containing alcohol?: 4 or more times a week 2. How many drinks containing alcohol do you have on a typical day when you are drinking?: 1 or 2 3. How often do you have six or more drinks on one occasion?: Never Total Score: 4 Score Reviewed/Action Taken: Yes EZE-7 AMB Questionnaire EZE-7 Date EZE - 7 assessed: 04/15/25 Feeling nervous, anxious, or on edge: 0 = Not at all Not being able to stop or control worryin = Not at all Worrying too much about different things: 0 = Not at all Trouble relaxin = Not at all Being so restless that it is hard to sit still: 0 = Not at all Becoming easily annoyed or irritable: 0 = Not at all Feeling afraid as if something awful might happen: 0 = Not at all Total EZE-7 score (0-4 normal; 5-9 mild; 10-14 moderate; 15-21 severe): 0 Source: Developed by Drs. Femi Jonas, Pooja Meehan, Sam Hill and colleagues, with an educational fabiana from [employer]. EZE-7 Assessment Billing EZE-7 Assessment Tool: EZE-7 Assessment 94388 Review of Systems Narrative - Cardiovascular: Reports no chest pain - Respiratory: Denies shortness of breath - Gastrointestinal: Denies nausea or vomiting - Musculoskeletal: Reports arthritis in hands, feelings of burning in feet and ankles - Integumentary: Reports itchiness and burning sensation correlated with sun exposure - Mood: Reports being generally happy, no depression or anxiety All systems reviewed & are unremarkable except as reviewed in HPI and above Physical exam (Primary Care) Vital Signs: Last Vital Signs Temp 97.8 F 04/15/25 11:29 Pulse 73 04/15/25 11:29 Resp 18 04/15/25 11:29 BP 170/77 H 04/15/25 11:29 Pulse Ox 97 04/15/25 11:29 Oxygen Delivery Method Room Air 04/15/25 11:29 BMI result Body Mass Index 24.6 Tobacco/Smoking Status: Tobacco use Status Tobacco use date assessed 04/15/25 04/15/25 10:50 Patient Tobacco Use Status Never used Tobacco 04/15/25 10:50 Tobacco use type Cigarette 04/15/25 11:33 e-Cigarette/Vaping Use Never Used 04/15/25 11:33 Depression Screening Interpretation: Negative Narrative General: +Alert and oriented, Well nourished, No acute distress. Eye: Pupils are equal, round and reactive to light, Intact accommodation, Extraocular movements are intact, Normal conjunctiva, Vision unchanged. HENT: Normocephalic, Atraumatic, Tympanic membranes are clear, Normal hearing, Oral mucosa is moist, No pharyngeal erythema, Ear canals patent. Respiratory: Lungs CTA bilaterally, No wheeze, Respirations are non-labored. Cardiovascular: Regular rate, Regular rhythm, S1 auscultated, S2 auscultated, No murmur, Good pulses equal in all extremities, Normal peripheral perfusion, No edema. Gastrointestinal: Soft, Non-tender, Non-distended, Normal bowel sounds, No organomegaly. Musculoskeletal: Normal range of motion, Normal strength, No tenderness, No swelling, No deformity, Normal gait. Integumentary: Warm, Dry, [place], Intact. Noted lesions on the head possibly from sun exposure, and reports of burning sensation in ankles and feet. Neurologic: Alert, Oriented, Normal sensory, Normal motor function, No focal defects, Cranial Nerves II-XII are grossly intact, Normal deep tendon reflexes. Psychiatric: Cooperative, Appropriate mood & affect, Normal judgment. Coding Level of Care Code New Pt Level 4 (23396) Diagnoses Primary hypertension I10 Hypertension type: primary hypertension Other hyperlipidemia E78.49 Hyperlipidemia type: other hyperlipidemia Tubular adenoma D36.9 Neuropathy G62.9 Arthritis M19.90 Additional Codes PHQ-9 - 66579 - PHQ-9 Billing: Yes ([id number]) EZE-7 Assessment Billing - EZE-7 Assessment Tool: EZE-7 Assessment 58015 ([id number]) Assessment & Plan Assessment & Plan (1) HTN (hypertension): Comment: - Reassess blood pressure with home monitoring over the next two weeks?daily records at morning and post-medication. (Elevated in clinic today to over 170 on initial with repeat at 150) - Continue with current medications: hydrochlorothiazide 12.5 mg and lisinopril 10 mg, monitoring for potential adjustment at follow-up. Code(s): I10 - Essential (primary) hypertension Category: Medical Qualifiers: Hypertension type: primary hypertension Qualified Code(s): I10 - Essential (primary) hypertension (2) Hyperlipidemia: Comment: - Initiate atorvastatin 40 mg every night; emphasize benefits in cardiovascular risk reduction. - Review lipid profiles following lab results post-therapy for future management. Code(s): E78.5 - Hyperlipidemia, unspecified Category: Medical Qualifiers: Hyperlipidemia type: other hyperlipidemia Qualified Code(s): E78.49 - Other hyperlipidemia (3) Tubular adenoma: Comment: - Repeat colon in June 2025 based on last scope requiring 3 year follow up Code(s): D36.9 - Benign neoplasm, unspecified site Category: Medical (4) Neuropathy: Comment: - Suspected neuropathy; symptomatic relief recommended with leg elevation. - Observation advised with possible neuropathy medication PRN if symptoms persist. Code(s): G62.9 - Polyneuropathy, unspecified Category: Medical (5) Arthritis: Comment: - Continue home management with Tylenol as preferred pain control, with possible ibuprofen use for breakthrough pain. Code(s): M19.90 - Unspecified osteoarthritis, unspecified site Category: Medical Plan: Health Maintenance: - Regular blood pressure checks and cholesterol monitoring - Colonoscopy scheduled every three years due to history of polyps - Continued advice on weight management, exercise, and reduced alcohol consumption to manage cardiovascular risk Patient was informed and verbally consented to the use of an ambient scribe for clinic note documentation during this visit. Plan During this visit, I discussed with the patient the need to manage both hypertension and hyperlipidemia aggressively given his family history of cardiovascular disease. We addressed home monitoring of blood pressure and initiated atorvastatin to reduce elevated LDL levels. Discussed the nature of potential side effects, and emphasized the importance of the medication in decreasing cardiac morbidity. We reviewed the potential for sun sensitivity causing skin symptoms and suggested symptomatic treatment options for burning sensations in his legs. We also engaged in a conversation about lifestyle habits, emphasizing continued exercise and monitoring alcohol intake. I will follow up in two weeks to assess the effectiveness of interventions and review any changes in reported symptoms or new lab results. Orders: Orders Hepatitis A,B,C Profile Today Z76.89 - Persons encountering health services in other specified circumstances HIV Ab/Ag Today Z76.89 - Persons encountering health services in other specified circumstances Syphilis Screen Today Z76.89 - Persons encountering health services in other specified circumstances TSH reflex Free T4 Today Z76.89 - Persons encountering health services in other specified circumstances Vitamin D 25-OH Total Today Z76.89 - Persons encountering health services in other specified circumstances Complete Blood Count Auto Diff Today Z76.89 - Persons encountering health services in other specified circumstances Comprehensive Met. Panel Today Z76.89 - Persons encountering health services in other specified circumstances Hemoglobin A1c Today Z76.89 - Persons encountering health services in other specified circumstances Lipid Panel Today Z76.89 - Persons encountering health services in other specified circumstances Uric Acid Today Z76.89 - Persons encountering health services in other specified circumstances Medications: New atorvastatin (Lipitor) 40 mg PO BEDTIME 90 tabs 3RF Patient Instructions: - Take atorvastatin 40 mg every night. - Check blood pressure daily, both in the morning and one hour after taking medications. Record readings to discuss at the next visit. - Use Tylenol for arthritis symptoms and avoid excessive use of ibuprofen. - Elevate your feet during the day to alleviate burning sensations in your legs. - Protect your skin from sun exposure, use sunscreen, and wear protective clothing. 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 - Write down any changes in symptoms or concerns to discuss at the next appointment. - Follow up in two weeks for re-evaluation.
[2025-04-15 11:29] VITALS: BP 170/77; PULSE 73; RESP 18; TEMP 36.6; O2SAT 97; BMI 24.6
== END 2025-04-15 12:10 | disposition home or self-care (01) ==
PROVIDERS: PCP Student in an Organized Health Care Education/Training Program; Visit Provider Student in an Organized Health Care Education/Training Program
DX: I10 Essential (primary) hypertension (principal); E78.49 Other hyperlipidemia; D36.9 Benign neoplasm, unspecified site; G62.9 Polyneuropathy, unspecified; M19.90 Unspecified osteoarthritis, unspecified site

== ENCOUNTER 2025-04-15 11:20 | Outpatient (REF) | payer MEDICARE, SELFPAY ==
[2025-04-15 12:25] LABS: MANUAL DIFF FLAG NO
[2025-04-15 12:59] LABS: Hematocrit 49.1 % (42.0-52.0); Hemoglobin 16.8 g/dl (14.0-18.0); Imm Gran Abs Auto 0.03 X10*3/uL (0.00-0.03); Imm Gran Pct Auto 0.5 % (0.0-0.4); Lymphocytes Absolute Auto 1.4 X10*3/uL (1.2-4.9); Mean Corpuscular HGB Conc 34.2 g/dl (31.0-36.0); Mean Corpuscular Hemoglobin 30.4 pg (27.0-33.0); Mean Corpuscular Volume 88.8 fL (80.0-98.0); NRBC Abs Auto 0.000 X10*3/uL (0.0-0.012); NRBC Pct Auto 0.0 /100WBC (0.0-0.2); Platelet Count 187 X10*3/uL (160-400); Red Blood Count 5.53 X10*6/uL (4.60-5.80); White Blood Count 5.9 X10*3/uL (4.8-10.8)
[2025-04-15 14:03] LABS: Alanine Aminotransferase 28 U/L (0-40); Albumin Level 4.6 g/dL (3.5-5.0); Alkaline Phosphatase 39 U/L (39-117); Anion Gap 13 (12-20); Aspartate Amino Transferase 30 U/L (5-37); Blood Urea Nitrogen 15 mg/dL (9-16); Calcium 9.5 mg/dL (8.4-10.2); Carbon Dioxide 28 mmol/L (22-29); Chloride 101 mmol/L (96-108); Cholesterol 260 mg/dL (<200); Estimated Glomerular Filt Rate > 60; HDL Cholesterol 57 mg/dL (>40); Potassium 4.0 mmol/L (3.3-5.1); Sodium 138 mmol/L (135-145); Total Protein 7.4 g/dL (6.5-8.0); Triglycerides 179 mg/dL (<150); Uric Acid 7.1 mg/dL (3.4-7.0)
[2025-04-16 04:04] LABS: Syphilis Screen Nonreactive (Nonreactive)
[2025-04-16 04:25] LABS: HBc Num1 0.14 S/CO (0.00-0.79); HBsAGNum1 0.31 S/CO (0.00-0.99); Hepatitis A Antibody IgM 0.51 Index (0-0.79); Hepatitis B Surface Antigen Negative (Negative); ~HepC Num1 0.14 S/CO (0.00-0.79); ~Hepatitis A Antibody IgM Nonreactive (Nonreactive); ~Hepatitis C Antibody Nonreactive (Nonreactive)
[2025-04-16 04:33] LABS: HBS Num1 0.53 mIU/mL (0-7.99); HIV Num 1 0.05 S/CO (0.00-0.99); ~Hepatitis B Surface Antibody NONREACTIVE (Nonreactive)
== END 2025-04-15 11:21 | disposition home or self-care (01) ==
LOC: HO.LAB 11:20
PROVIDERS: PCP Physician Assistant; Visit Provider Student in an Organized Health Care Education/Training Program
DX: Z76.89 Persons encountering health services in other specified circumstances (principal); I10 Essential (primary) hypertension; E78.49 Other hyperlipidemia; D36.9 Benign neoplasm, unspecified site; G62.9 Polyneuropathy, unspecified; M19.90 Unspecified osteoarthritis, unspecified site; Z79.899 Other long term (current) drug therapy
CPT/HCPCS: 36415; 80053; 80061; 82306; 83036; 84443; 84550; 85025; 86704; 86706; 86709; 86780; 86803; 87340; 87389; 96127; 99202

== ENCOUNTER 2025-05-03 10:05 | Outpatient (REF) | payer MEDICARE, SELFPAY ==
--- NOTE | ~2025-05-03 | XR_ITS ---
EXAMINATION: XR LUMBOSACRAL SPINE CLINICAL INFORMATION: G62.9 - Polyneuropathy, unspecified COMPARISON: June 30, 2024. TECHNIQUE: Lateral views, neutral, flexion and extension position. AP view. FINDINGS: There is a 2 mm retrolisthesis in neutral position which reduces in flexion position at L2-3. No acute cortical disruption. No lytic or blastic lesions. Mild multilevel endplate sclerosis and small marginal osteophyte formation. Vascular calcifications. XR/XR lumbar spine 6V w bending IMPRESSION: Grade 1 retrolisthesis, L2-3 likely unstable. Electronically signed by: Arjun Campos MD 05/03/2025 11:30 AM [facility]
--- NOTE | ~2025-05-03 | XR_ITS ---
EXAMINATION: XR CERVICAL SPINE CLINICAL INFORMATION: G62.9 - Polyneuropathy, unspecified COMPARISON: September 04, 2023. TECHNIQUE: AP oblique and lateral views. Atlantoaxial view. FINDINGS: Craniocervical junction is intact. Osteopenia versus osteoporosis. Small marginal osteophyte formation and endplate sclerosis with decreased intervertebral disc height at C5-6, C6-7 and to a lesser extent C4-5. No gross malalignment. No lytic or blastic lesions. Mild neuroforamina narrowing C5-6 and C6-7 levels, right greater than the left side. Upper airways patent. . XR/XR cervical spine 4V IMPRESSION: Multilevel cervical spondylosis pronounced at C5-6 and C6-7 without acute fracture or listhesis. Electronically signed by: Arjun Campos MD 05/03/2025 11:32 AM [facility]
== END 2025-05-03 10:06 | disposition home or self-care (01) ==
LOC: HO.XRAY 10:05
PROVIDERS: PCP Student in an Organized Health Care Education/Training Program; Visit Provider Student in an Organized Health Care Education/Training Program
DX: G62.9 Polyneuropathy, unspecified (principal); I10 Essential (primary) hypertension; E78.49 Other hyperlipidemia; Z79.899 Other long term (current) drug therapy
CPT/HCPCS: 72050; 72114; 99212

== ENCOUNTER 2025-05-03 10:05 | Outpatient (AMB) | payer MEDICARE, SELFPAY ==
--- NOTE | 2025-05-03 10:07 | A.OFFPC_ITS ---
Vital Signs 05/03/25 10:11 Comment Pt refused vitals and any work up. 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 He reports a six-week history of symptoms in his feet, described as tingling, burning, and soreness. The symptoms are exacerbated by sitting and are not always present when walking or wearing slippers at home. He also notes occasional hip pain that radiates down his leg. He denies any recent trauma, neck pain, tingling in his hands, lightheadedness, or dizziness. The patient has a history of hypertension and reports home blood pressure readings in the high 130s to 140s. He also has a history of hyperlipidemia, with a past total cholesterol level around 230. A month prior to his most recent bloodwork, he changed his diet to include daily ice cream and more sausage, which he feels contributed to his elevated cholesterol. Past medical history is also significant for arthritis. A spine X-ray performed about a year ago was normal. He is not diabetic, with a hemoglobin A1c of 5.5. The patient is active, participating in activities like 4-mile walks and cycling. Medical History: - Hypertension - Hyperlipidemia - Arthritis Medications: - Atorvastatin 40 mg for hyperlipidemia - Lisinopril 10 mg for hypertension Diagnostic Results: - Recent blood work showed a total kunal sterol of 260 and an LDL of 170. - Hemoglobin A1c is 5.5%. - Vitamin D and thyroid levels are tamanna l. - A spine X-ray from a year ago was norm al. Social History: - Exercise: The patient engages in physi beth activity, including four-mile walks and cycling. - Diet: He reports a diet change about a month prior to recent bloodwork, where he started consuming ice cream daily and more sausage. - This followed a year-long period of ad vani to a whole foods, high-fat, high-protein diet. [facility] Medical History (Updated 05/03/25 @ 10:31 by Kalin Pizano MD) Arthritis Neuropathy Hyperlipidemia HTN (hypertension) Tubular adenoma Surgical History H/O colonoscopy Hx of left inguinal hernia repair Family History Mother Lung cancer Colon cancer Father Heart attack Social History Household Members: Significant Other Housing: Condominium Alcohol intake: current Patient Tobacco Use Status: Never used Tobacco Tobacco use type: Cigarette e-Cigarette/Vaping Use: Never Used service: No Current occupational status: retired Questionnaire PHQ-9 Over the last 2 weeks, how often have you been bothered by any of the following problems? 1. Little interest or pleasure in doing things: not at all 2. Feeling down, depressed, or hopeless: not at all 3. Trouble falling or staying asleep, or sleeping too much: not at all 4. Feeling tired or having little energy: not at all 5. Poor appetite or overeating: not at all 6. Feeling bad about yourself - or that you are a failure or have let yourself or your family down: not at all 7. Trouble concentrating on things, such as reading the newspaper or watching television: not at all 8. Moving or speaking so slowly that other people could have noticed. Or the opposite - being so fidgety or restless that you have been moving around a lot more than usual: not at all 9. Thoughts that you would be better off or of hurting yourself in some way: not at all Total score: 0 Depression Screening Interpretation: Negative Depression Screening Done: Yes Source: Developed by Drs. Femi Jonas, Pooja Meehan, Sam Hill and colleagues, with an educational fabiana from [employer]. Thrive Questionnaire Date Thrive assessed: 05/03/25 I am a: Patient What is your living situation today?: I have a steady place to live Within the past 12 months, did the food you bought not last and you didn't have the money to get more?: Never true Within the past 12 months, did you worry whether your food would run out before you got money to buy more?: Never true Do you have trouble paying for medicines?: No Do you have trouble getting transportation to medical appointments?: No Do you have trouble paying your heating and electricity bill?: No Do you have trouble taking care of your child, family member or friend?: No Do you have trouble with day-to-day activities such as bathing, preparing meals, shopping, managing finances, etc.?: No Are you currently unemployed and looking for a job?: No Are you interested in more education?: No THRIVE Score: 0 AUDIT C Alcohol Use Questionnaire (AUDIT-C) 1. How often do you have a drink containing alcohol?: Never 3. How often do you have six or more drinks on one occasion?: Never Total Score: 0 EZE-7 AMB Questionnaire EZE-7 Date EZE - 7 assessed: 04/15/25 Feeling nervous, anxious, or on edge: 0 = Not at all Not being able to stop or control worryin = Not at all Worrying too much about different things: 0 = Not at all Trouble relaxin = Not at all Being so restless that it is hard to sit still: 0 = Not at all Becoming easily annoyed or irritable: 0 = Not at all Feeling afraid as if something awful might happen: 0 = Not at all Total EZE-7 score (0-4 normal; 5-9 mild; 10-14 moderate; 15-21 severe): 0 Source: Developed by Drs. Femi Jonas, Pooja Meehan, Sam Hill and colleagues, with an educational fabiana from [employer]. Review of Systems Narrative - Constitutional: Denies lightheadedness or dizziness. - Neurological: Reports a 6-week history of intermittent tingling, burning, and soreness in the feet, which is worse when sitting. - He also reports occasional hip pain with radiation down the leg. - He denies tingling in the hands, balance issues, or headaches. - Musculoskeletal: Reports a sensation of strain in the back with forward flexion. - Denies neck pain. - Cardiovascular: Denies chest pain. - Respiratory: Denies shortness of breath. - Gastrointestinal: Denies nausea or vomiting. All systems reviewed & are unremarkable except as reviewed in HPI and above Physical exam (Primary Care) Tobacco/Smoking Status: Tobacco use Status Tobacco use date assessed 10/23/25 11/10/25 10:07 Patient Tobacco Use Status Never used Tobacco 05/03/25 10:07 Tobacco use type Cigarette 05/03/25 10:07 e-Cigarette/Vaping Use Never Used 05/03/25 10:07 Depression Screening Interpretation: Negative Thrive Assessment: Date of Thrive Assessment Date Thrive assessed 04/15/25 05/03/25 10:07 Narrative General: Alert and oriented, Well nourished, No acute distress. Eye: Pupils are equal, round and reactive to light, Intact accommodation, Extraocular movements are intact, Normal conjunctiva, Vision unchanged. HENT: Normocephalic, Atraumatic, Tympanic membranes are clear, Normal hearing, Oral mucosa is moist, No pharyngeal erythema, Ear canals patent. Respiratory: Lungs CTA bilaterally, No wheeze, Respirations are non-labored. Cardiovascular: Regular rate, Regular rhythm, S1 auscultated, S2 auscultated, No murmur, Good pulses equal in all extremities, Normal peripheral perfusion, No edema. Gastrointestinal: Soft, Non-tender, Non-distended, Normal bowel sounds, No organomegaly. Musculoskeletal: Normal range of motion, Normal strength, No tenderness, No swelling, No deformity, Normal gait. Integumentary: Warm, Dry, [place], Intact. Neurologic: Alert, Oriented, Normal sensory, Normal motor function, No focal defects, Cranial Nerves II-XII are grossly intact, Normal deep tendon reflexes. Psychiatric: Cooperative, Appropriate mood & affect, Normal judgment. This encounter qualifies as a Level 5 (96554) established patient visit due to the comprehensive nature of the evaluation and high complexity of medical decision-making. The visit addressed multiple chronic conditions (hypertension, hyperlipidemia, and neuropathy) with medication adjustments (increased lisin opril dose, initiation of gabapentin), diagnostic imaging ordered (lumbar and cervical spine X-rays), and detailed counseling on cardiovascular risk reduction, diet modification, and preventive screening. The assessment required independent interpretation of recent labs, risk stratification (10-year ASCVD risk of 18%), and differential diagnosis (neuropathy vs. lumbar radiculopathy), all representing high complexity in management and data review. The overall visit involved an extensive review of systems, a comprehensive physical exam, and medical decision-making consistent with a high level of complexity. Coding Level of Care Code Est Pt Level 5 (49661) Complex EM visit Add On G2211 Diagnoses Neuropathy G62.9 Primary hypertension I10 Hypertension type: primary hypertension Other hyperlipidemia E78.49 Hyperlipidemia type: other hyperlipidemia Assessment & Plan Assessment & Plan (1) Neuropathy: Comment: - The patient presents with a six-week history of foot tingling, burning, and soreness, which is worse when sitting. - The differential diagnosis includes peripheral neuropathy versus lumbar radiculopathy secondary to nerve compression or arthritis. - An X-ray of the lumbar spine and neck will be obtained for further evaluation. - A trial of gabapentin 100 mg twice daily has been initiated, with the option to increase the dose if there is partial improvement. - Physical therapy will be considered depending on the results of the imaging. Code(s): G62.9 - Polyneuropathy, unspecified Category: Medical (2) HTN (hypertension): Comment: - The patient's blood pressure is elevated at 160/x mmHg in the clinic, and home readings are also on the higher side. - To improve control, the lisinopril dose will be increased from 10 mg to 20 mg daily. - The patient has been instructed to discard his remaining 10 mg tablets. Code(s): I10 - Essential (primary) hypertension Category: Medical Qualifiers: Hypertension type: primary hypertension Qualified Code(s): I10 - Essential (primary) hypertension (3) Hyperlipidemia: Comment: - Recent lab work indicates worsening hyperlipidemia with a total cholesterol of 260 and LDL of 170, placing him at an 18% 10-year cardiovascular risk. - This is attributed to recent dietary indiscretions. - He will continue atorvastatin 40 mg, and extensive dietary counseling was provided to avoid processed foods and fats. Code(s): E78.5 - Hyperlipidemia, unspecified Category: Medical Qualifiers: Hyperlipidemia type: other hyperlipidemia Qualified Code(s): E78.49 - Other hyperlipidemia Plan: Health Maintenance: - Cardiovascular disease risk: Patient has an 18% risk of having a stroke or other cardiovascular event based on current results. - Dietary counseling: Advised to cut out processed foods and fats to help manage cholesterol levels. - Prostate cancer screening: Discussed that routine PSA screening is no longer recommended due to a high incidence of false-positive results, unless there is a personal history of prostate cancer. Patient was informed and verbally consented to the use of an ambient scribe for clinic note documentation during this visit. Vital signs reviewed. Comprehensive history, review of systems, and physical exam completed. Medications, allergies, and problem list reviewed and updated. Counseling provided on nutrition, regular exercise, sleep hygiene, and moderation of alcohol use. Screened for depression, fall risk, and home safety; no current concerns. Patient educated on healthy lifestyle and agrees with the plan. Plan I discussed with the patient that his foot symptoms could be due to neuropathy or a compressed nerve in his spine, possibly related to arthritis. To investigate this, I have ordered X-rays of his neck and lumbar spine. I am starting him on gabapentin 100 mg twice a day for the pain, explaining that it might cause some initial drowsiness and that we can increase the dose if needed. We reviewed his high blood pressure reading of 160 in the clinic and his elevated home readings, and I have increased his lisinopril dose to 20 mg. I instructed him to discard his old 10 mg prescription. I also addressed his elevated cholesterol and 18% cardiovascular risk, emphasizing the need for dietary changes to cut out processed foods and fats while continuing his atorv astatin. In response to his question, I explained that routine PSA screening for prostate cancer is no longer recommended due to high rates of false positives. I have asked him to schedule a follow-up appointment in four weeks to reassess his pain and response to treatment. Orders: Orders XR lumbar spine 6V w bending Today G62.9 - Polyneuropathy, unspecified XR cervical spine 4V Today G62.9 - Polyneuropathy, unspecified Medications: New gabapentin 100 mg PO BID 60 caps 0RF lisinopril 20 mg PO DAILY 90 tabs 3RF Patient Instructions: - Go to the imaging center across from the clinic to get X-rays of your neck and lower back. - Start taking gabapentin 100 mg twice a day for your foot pain. - This medication may make you feel drowsy at first. - Increase your lisinopril dose to 20 mg once a day for your blood pressure and throw away any remaining 10 mg tablets. - Continue taking your atorvastatin 40 mg medication for cholesterol. - Make changes to your diet by avoiding processed foods, fats, sausage, and daily ice cream to help lower your cholesterol. - You may continue with low-impact exercises like cycling, but it may be best to avoid long walks for now. - Make a follow-up appointment for four weeks to check on your foot pain.
== END 2025-05-03 10:30 | disposition home or self-care (01) ==
LOC: HO.HMCHD 10:05
PROVIDERS: PCP Student in an Organized Health Care Education/Training Program; Visit Provider Student in an Organized Health Care Education/Training Program
DX: G62.9 Polyneuropathy, unspecified (principal); I10 Essential (primary) hypertension; E78.49 Other hyperlipidemia

== ENCOUNTER → 2025-05-03 10:37 | Outpatient (BNV) | payer MEDICARE, SELFPAY | PROVIDERS: PCP Student in an Organized Health Care Education/Training Program; Visit Provider Radiology Diagnostic Radiology | DX: G62.9 Polyneuropathy, unspecified (principal); M47.812 Spondylosis without myelopathy or radiculopathy, cervical region | CPT/HCPCS: 72050; 72114 ==

== ENCOUNTER 2025-05-31 07:46 | Outpatient (AMB) | payer MEDICARE, SELFPAY ==
--- NOTE | 2025-05-31 07:51 | MHC.PC.OV ---
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 Accompanied by: Self / Same As Patient Allergies No Known Allergies (No Known Allergies*) Allergy (Verified 05/31/25 07:51) Medication List - Last Reconciled 05/31/25 by Kalin Pizano MD atorvastatin (Lipitor) 40 mg PO BEDTIME hydrochlorothiazide 12.5 mg PO QAM lisinopril 20 mg PO DAILY [tumeric Take one capsule every day] Tobacco use date assessed: 04/15/25 Last assessed Fall Risk: 05/31/25 Dental Screening Dental Screen Date: 04/15/25 HPI HPI Comments History of Present Illness Details History of Present Illness The patient is a 74-year-old male presenting for a follow-up visit for management of chronic conditions. His blood pressure has been well-controlled, with readings around 130s at home and a recent reading of 129/70 mmHg. He is currently taking lisinopril and hydrochlorothiazide 12.5 mg for hypertension, and atorvastatin 40 mg for hyperlipidemia. Regarding his neuropathy, the patient reports discontinuing gabapentin because he was feeling off-balance and nervous. He saw a insole filler who made special shoe inserts for him. He notes that after about a week of using the inserts, a burning sensation in his ankle has resolved. He also initiated home physical therapy exercises for sciatica on his right side, and for the past three weeks, he has not experienced symptoms at night. The patient inquired if his previous ankle symptoms could have been a gout flare-up, noting his uric acid level was at the higher end of the normal range in previous blood work. He made significant dietary changes about a year and a half ago, incorporating full-fat dairy products like butter and cheese, and eating cheeseburgers. His last colonoscopy was in 2022, and he is due for a repeat in three to four years based on family history. Medical History: - Essential hypertension - Hyperlipidemia - Neuropathy - History of gout, with uric acid levels at the higher end of normal - Sciatica - Colonoscopy performed in 2022 Medications: - Lisinopril for hypertension - Hydrochlorothiazide 12.5 mg for hypertension - Atorvastatin 40 mg for hyperlipidemia - Gabapentin (discontinued) for neuropathy Family History: - Unspecified family history requiring colonoscopy every 3 years. Diagnostic Results: - Blood pressure: Home reading of 129/70 mmHg. - Blood work: Prior labs showed uric acid level at the higher end of the normal range. - Colonoscopy: Performed in 2022. Social History - Diet: The patient reports a dietary change approximately 1.5 years ago to include full-fat dairy, butter, cheese, and cheeseburgers. - Exercise: The patient engages in walking and performs home physical therapy exercises for sciatica. - Travel: The patient plans to travel to [place], [place] for three months. [facility] Medical History (Updated 05/31/25 @ 08:21 by Kalin Pizano MD) Arthritis Neuropathy Hyperlipidemia HTN (hypertension) Tubular adenoma Surgical History (Updated 05/03/25 @ 10:53 by Kay Hallman) H/O colonoscopy (~07/04/22) Hx of left inguinal hernia repair Family History Mother Lung cancer Colon cancer Father Heart attack Social History Household Members: Significant Other [facility] Alcohol intake: current Patient Tobacco Use Status: Never used Tobacco Tobacco use type: Cigarette e-Cigarette/Vaping Use: Never Used service: No Current occupational status: retired Questionnaire Thrive Questionnaire Date Thrive assessed: 05/03/25 AUDIT C Alcohol Use Questionnaire (AUDIT-C) 2. How many drinks containing alcohol do you have on a typical day when you are drinking?: 1 or 2 3. How often do you have six or more drinks on one occasion?: Never Total Score: 0 EZE-7 AMB Questionnaire EZE-7 Date EZE - 7 assessed: 04/15/25 Source: Developed by Drs. Femi Jonas, Pooja Meehan, Sam Hill and colleagues, with an educational fabiana from [email or web address]. Review of Systems Narrative Review of Systems - Neurological: Reports a history of feeling off-balance and nervous, which has resolved. Also reports previous ankle burning which has resolved. Denies headaches or vision loss. - Musculoskeletal: Reports sciatica on the right side, which has improved with home exercises. No longer experiences symptoms at night. - Constitutional: Reports feeling well. - Cardiovascular: Denies chest pain. - Respiratory: Denies shortness of breath. - Gastrointestinal: Reports normal bowel movements. - Genitourinary: Reports normal urination. All systems reviewed & are unremarkable except as reviewed in HPI and above Physical exam (Primary Care) Vital Signs: Last Vital Signs Temp 98.1 F 05/31/25 07:57 Pulse 94 05/31/25 07:57 Resp 20 05/31/25 07:57 BP 132/58 L 05/31/25 07:57 Pulse Ox 98 05/31/25 07:57 Oxygen Delivery Method Room Air 05/31/25 07:57 BMI result Body Mass Index 24.9 Tobacco/Smoking Status: Tobacco use Status Tobacco use date assessed 04/15/25 05/31/25 07:52 Patient Tobacco Use Status Never used Tobacco 05/31/25 07:52 Tobacco use type Cigarette 05/31/25 07:52 e-Cigarette/Vaping Use Never Used 05/31/25 07:52 Thrive Assessment: Date of Thrive Assessment Date Thrive assessed 05/03/25 05/31/25 07:52 Narrative Physical Exam General: Alert and oriented, Well nourished, No acute distress. Eye: Pupils are equal, round and reactive to light, Intact accommodation, Extraocular movements are intact, Normal conjunctiva, Vision unchanged. HENT: Normocephalic, Atraumatic, Tympanic membranes are clear, Normal hearing, Oral mucosa is moist, No pharyngeal erythema, Ear canals patent. Respiratory: Lungs CTA bilaterally, No wheeze, Respirations are non-labored. Cardiovascular: Regular rate, Regular rhythm, S1 auscultated, S2 auscultated, No murmur, Good pulses equal in all extremities, Normal peripheral perfusion, No edema. Gastrointestinal: Soft, Non-tender, Non-distended, Normal bowel sounds, No organomegaly. Musculoskeletal: Normal range of motion, Normal strength, No tenderness, No swelling, No deformity, Normal gait. Integumentary: Warm, Dry, [place], Intact. Neurologic: Alert, Oriented, Normal sensory, Normal motor function, No focal defects, Cranial Nerves II-XII are grossly intact, Normal deep tendon reflexes. Psychiatric: Cooperative, Appropriate mood & affect, Normal judgment. Coding Level of Care Code Est Pt Level 3 (30300) Complex visit Add On G2211 Diagnoses Primary hypertension I10 Hypertension type: primary hypertension Other hyperlipidemia E78.49 Hyperlipidemia type: other hyperlipidemia Neuropathy G62.9 Assessment & Plan Assessment & Plan (1) HTN (hypertension): Comment: - The patient's blood pressure is well-controlled on the current regimen of lisinopril and hydrochlorothiazide 12.5 mg. No changes to his medication are needed at this time. - He will continue to monitor his blood pressure at home. - No repeat blood work is required for at least six months. Code(s): I10 - Essential (primary) hypertension Category: Medical Qualifiers: Hypertension type: primary hypertension Qualified Code(s): I10 - Essential (primary) hypertension (2) Hyperlipidemia: Comment: - The patient continues on atorvastatin 40 mg. His lipid panel will be rechecked at his next annual physical to assess the impact of his dietary changes. Code(s): E78.5 - Hyperlipidemia, unspecified Category: Medical Qualifiers: Hyperlipidemia type: other hyperlipidemia Qualified Code(s): E78.49 - Other hyperlipidemia (3) Neuropathy: Comment: - The patient has discontinued gabapentin due to side effects. - His symptoms of ankle burning and sciatica have resolved with the use of custom orthotics and home physical therapy exercises. - Gout was considered as a differential for his ankle symptoms, but it is less likely given the absence of acute pain. - The current management appears effective. Code(s): G62.9 - Polyneuropathy, unspecified Category: Medical Plan: Health Maintenance: - Diet: The patient reports having changed his diet about a year and a half ago to include full-fat dairy, butter, cheese, and cheeseburgers. - Exercise: The patient walks and performs home physical therapy exercises for sciatica. - Screening: The patient's last colonoscopy was in 2022, and he is due for a repeat in 3 years. - Blood pressure monitoring: The patient will continue to monitor his blood pressure at home. Patient was informed and verbally consented to the use of an ambient scribe for clinic note documentation during this visit. Plan I discussed with the patient that his blood pressure is well-managed with his current medication regimen of lisinopril and hydrochlorothiazide, and no changes are needed at this time. We will continue his atorvastatin, and I explained that we will recheck his labs at his next annual physical. I explained that a borderline uric acid level without clinical symptoms is not indicative of a gout flare, and that gout typically presents with pain rather than the numbness he described. I confirmed that his next colonoscopy is not due for three years. I instructed him to continue monitoring his blood pressure at home and to schedule a follow-up appointment in five months. Patient Instructions: - Continue taking all your current medications as prescribed, including lisinopril, hydrochlorothiazide, and atorvastatin. - Keep checking your blood pressure at home to make sure it stays in a good range. - We will check your blood work again in about six months or longer; it is not needed right now. - Your next colonoscopy is not due for about three years; the specialist's office will contact you when it's time. - Please schedule a follow-up appointment at the lead front desk agent to be seen again in five months.
[2025-05-31 07:57] VITALS: BP 132/58; PULSE 94; RESP 20; TEMP 36.7; O2SAT 98; BMI 24.9
== END 2025-05-31 08:16 | disposition home or self-care (01) ==
LOC: HO.HMCHD 07:47
PROVIDERS: PCP Student in an Organized Health Care Education/Training Program; Visit Provider Student in an Organized Health Care Education/Training Program
DX: I10 Essential (primary) hypertension (principal); E78.49 Other hyperlipidemia; G62.9 Polyneuropathy, unspecified

== ENCOUNTER → 2025-05-31 07:46 | Outpatient (BNVA) | payer MEDICARE, SELFPAY | PROVIDERS: PCP Student in an Organized Health Care Education/Training Program; Visit Provider Student in an Organized Health Care Education/Training Program | DX: I10 Essential (primary) hypertension (principal); E78.49 Other hyperlipidemia; G62.9 Polyneuropathy, unspecified; Z79.899 Other long term (current) drug therapy | CPT/HCPCS: 99212 ==